=== PATIENT | female | born 1980 | race Caucasian/White ===

== ENCOUNTER 2019-06-19 08:58 | Emergency (ER) | payer SELFPAY ==
[~2019-06-19] VITALS: Ht 162.6 cm; Wt 49.0 kg
[~2019-06-19 08:58] MED LIST: FLINTSTONES1 EAC1 PO
[2019-06-19] MEDS ORDERED: ONDANSETRON ODT8 MG PO (10:48)
[2019-06-19] MEDS ORDERED: MACRODANTIN100 MG PO (10:48)
== END 2019-06-19 11:02 | disposition home or self-care (01) ==
LOC: ED 08:58
DX: N39.0 Urinary tract infection, site not specified (principal); Z88.0 Allergy status to penicillin; Z88.5 Allergy status to narcotic agent
CPT/HCPCS: 76705; 80053; 81001; 83690; 84703; 85025; 96361; 96374; 96375; 99284-25; J1170; J2405; J7121

== ENCOUNTER → 2019-07-19 | Emergency (ER) | payer OTHER ==
[~2019-07-19] VITALS: Ht 162.6 cm; Wt 49.0 kg
[~2019-07-19] MED LIST changes: +KEFLEX500 MG PO; +MACRODANTIN100 MG PO; +ONDANSETRON ODT4 MG PO; +ONDANSETRON ODT8 MG PO; +PERCOCET 5-3251 EACH PO
--- OUTSIDE RECORDS SUMMARY | 2019-07-19 06:56 | XMS ---
PreManage Notification: OTILIO KITCHEN [employer] Events No recent Security Events currently on file CRITERIA MET - [facility] [place] - 2 Visits in 30 Days CARE PROVIDERS There are no care providers on record at this time. Ava has no Care Guidelines for this patient. Ngozi VISIT COUNT (12 MO.) [facility] T[facility] NOTE: Visits indicate total known visits. ED/C VISIT TRACKING (12 MO.) 07/19/2019 06:53 [facility] TYPE: Emergency COMPLAINT: - VOMITING, ABD PAIN 06/19/2019 08:[address] [facility] [place] TYPE: Emergency COMPLAINT: - ABD PAIN DIAGNOSES: - Unspecified abdominal pain - Allergy status to narcotic agent status - Urinary tract infection, site not specified - Allergy status to penicillin INPATIENT VISIT TRACKING (12 MO.) No inpatient visits to display in this time frame [email or web address]
== END ==
LOC: ED 06:53
DX: N20.0 Calculus of kidney (principal); Z87.891 Personal history of nicotine dependence; Z88.0 Allergy status to penicillin; Z88.5 Allergy status to narcotic agent; Z79.899 Other long term (current) drug therapy
CPT/HCPCS: 74177; 80053; 81001; 83690; 84703; 85025; 87077; 87088; 87186; 96361; 96375; 99284-25; J0696; J1170; J1790; J2405; J7030; Q9967